=== PATIENT | female | born 1995 | race Caucasian/White ===

== ENCOUNTER 2022-10-28 02:40 | Inpatient (IN) | payer BC ==
[2022-10-30 20:20] VITALS: BMI 29.9
[2022-10-30] MEDS ORDERED: HYDROcodone/Acetaminophen 5/325 mg Tablet PO PRN ×2 (20:22)
[2022-10-30] MEDS ORDERED: hydrALAZINE 20 MG/ML VIAL SLOW IVP PRN (20:22)
[2022-10-30] MEDS ORDERED: Lidocaine 1% (PF) 30 ML VIAL SC PRN (20:22)
[2022-10-30] MEDS ORDERED: fentaNYL 50 mcg/mL 1 mL Vial SLOW IVP PRN (20:22)
[2022-10-30] MEDS ORDERED: Ibuprofen 800 MG TAB PO PRN (20:22)
[2022-10-30] MEDS ORDERED: Promethazine HCl 25 MG/ML VIAL IM PRN (20:22)
[2022-10-30] MEDS ORDERED: NS w/ Oxytocin 30 units 500 ML IV SCH ×3 (20:22)
[2022-10-30] MEDS ORDERED: Ondansetron PF 4 MG/2 ML Vial IVP PRN (20:22)
[2022-10-30] MEDS ORDERED: Misoprostol 100 MCG TAB VAG SCH (20:30)
[2022-10-30] MEDS: Lactated Ringer's 1,000 ML IV SCH (20:40)
[2022-10-30 20:48] LABS: Hemoglobin 12.2 g/dL (12.0-15.5); Mean Corpuscular HGB CONC 33.9 g/dL (32.0-36.0); Mean Corpuscular Hemoglobin 30.2 pg (27.0-33.0); Mean Corpuscular Volume 89.1 fl (81.6-98.3); Mean Platelet Volume 10.2 fl (7.4-10.4); Platelet Count 256 10x3/uL (150-450); RBC Distribution Width 13.7 % (11.5-14.5); Red Blood Cell (RBC) Count 4.04 10x6/uL (3.90-5.03); White Blood Cell (WBC) Count 13.9 10x3/uL (3.5-10.5)
[2022-10-30 21:20] LABS: HBSAg Index 0.21 S/CO (0-0.99); Hep B Surf Ag - L&D Non-Reactive S/CO (NonReactive); Syphilis Antibody Nonreactive (Nonreactive); Syphilis Antibody Index 0.06 S/CO (<1.00 Non-Reactive)
[2022-10-31] MEDS ORDERED: fentaNYL/Ropivacaine Epidural 100 ML ONE (01:32)
[2022-10-31] MEDS: Misoprostol 100 MCG TAB VAG SCH ×3 (01:41→05:38)
[2022-10-31] MEDS ORDERED: Promethazine HCl 25 MG/ML VIAL IM PRN (02:11)
[2022-10-31] MEDS ORDERED: Naloxone HCl 0.4 mg/ml Vial IVP PRN ×2 (02:11)
[2022-10-31] MEDS ORDERED: diphenhydrAMINE 50 MG/ML VIAL IVP PRN (02:11)
[2022-10-31] MEDS ORDERED: Ondansetron PF 4 MG/2 ML Vial IVP PRN ×2 (02:11→12:03)
[2022-10-31] MEDS ORDERED: Moisturizing Cream (Eucerin) 113 GM JAR TOP PRN (02:11)
[2022-10-31] MEDS ORDERED: Acetaminophen 325 MG TAB PO PRN (02:11)
[2022-10-31] MEDS ORDERED: Lactated Ringer's 500 ML IV PRN (02:11)
[2022-10-31] MEDS ORDERED: ePHEDrine Sulfate 50 MG/10 ML VIAL SLOW IVP PRN (02:11)
[2022-10-31] MEDS ORDERED: fentaNYL 2 mcg/Ropivacaine 0.2% Epidural 100 ML CADD EPIDURAL SCH (02:15)
[2022-10-31] MEDS ORDERED: Communication Order-Pharmacy FS SCH (02:15)
[2022-10-31] MEDS: Lactated Ringer's 1,000 ML IV SCH (05:37)
[2022-10-31] MEDS ORDERED: Methylergonovine 0.2 MG/ML VIAL ONE (07:31)
[2022-10-31] MEDS: Misoprostol 200 MCG TAB ONE (07:50)
[2022-10-31] MEDS ORDERED: Lanolin Ointment 7 GM TUBE TOP PRN (12:03)
[2022-10-31] MEDS ORDERED: NS w/ Oxytocin 30 units 500 ML IV SCH (12:03)
[2022-10-31] MEDS ORDERED: HYDROcodone/Acetaminophen 5/325 mg Tablet PO PRN ×2 (12:03)
[2022-10-31] MEDS ORDERED: Milk Of Magnesia 30 ML UDCUP PO PRN (12:03)
[2022-10-31] MEDS ORDERED: hydrALAZINE 20 MG/ML VIAL SLOW IVP PRN (12:03)
[2022-10-31] MEDS ORDERED: Bisacodyl 10 MG SUPP PR PRN (12:03)
[2022-10-31] MEDS ORDERED: Boostrix 0.5 ML (Tdap) VIAL (>/=7 yrs of age) IM ONE (12:03)
[2022-10-31] MEDS ORDERED: diphenhydrAMINE 25 MG CAP PO PRN (12:03)
[2022-10-31] MEDS ORDERED: Preparation H Ointment 28 GM TUBE PR PRN (12:03)
[2022-10-31] MEDS ORDERED: Ferrous Sulfate 325 MG TAB PO SCH (12:15)
[2022-10-31] MEDS ORDERED: Prenatal Vitamin 1 TAB PO SCH (12:15)
[2022-10-31] MEDS ORDERED: Docusate 100 MG CAP PO SCH (12:15)
[2022-10-31] MEDS: Ibuprofen 800 MG TAB PO SCH ×2 (15:10→22:46)
[2022-10-31] MEDS: Ferrous Sulfate 325 MG TAB PO SCH (18:03)
[2022-10-31] MEDS: Docusate 100 MG CAP PO SCH (19:44)
[2022-10-31] MEDS ORDERED: Witch Hazel-Glycerin 1 EACH JAR TOP PRN (21:29)
[2022-11-01] MEDS: Ibuprofen 800 MG TAB PO SCH ×2 (06:17→14:04)
[2022-11-01 07:28] VITALS: BP 111/62; TEMP 97.8
[2022-11-01] MEDS: Ferrous Sulfate 325 MG TAB PO SCH (08:14)
[2022-11-01] MEDS: Docusate 100 MG CAP PO SCH (08:15)
[2022-11-01] MEDS ORDERED: Prenatal Vitamin 1 TAB PO SCH (09:00)
== END 2022-11-01 14:35 | disposition home or self-care (01) | DRG 807 ==
LOC: CSHLD 10-30 20:03 → CSHPP 10-31 09:55
PROVIDERS: ADMIT Obstetrics & Gynecology; ATTEND Obstetrics & Gynecology
PROC: 10E0XZZ Delivery of Products of Conception, External Approach (ICD-10-PCS; principal; 2022-10-31)
PROC: 0KQM0ZZ Repair Perineum Muscle, Open Approach (ICD-10-PCS; 2022-10-31)
PROC: 3E0P7VZ Introduction of Hormone into Female Reproductive, Via Natural or Artificial Opening (ICD-10-PCS; 2022-10-31)
PROC: 3E033VJ Introduction of Other Hormone into Peripheral Vein, Percutaneous Approach (ICD-10-PCS; 2022-10-31)
PROC: 3E0334Z Introduction of Serum, Toxoid and Vaccine into Peripheral Vein, Percutaneous Approach (ICD-10-PCS; 2022-10-31)
DX: O48.0 Post-term pregnancy (principal); Z37.0 Single live birth; O62.2 Other uterine inertia; O70.1 Second degree perineal laceration during delivery; Z3A.40 40 weeks gestation of pregnancy; O26.893 Other specified pregnancy related conditions, third trimester; Z67.41 Type O blood, Rh negative
CPT/HCPCS: 36415; 51702; 85027; 86780; 86850; 86870; 86900; 86901; 87340; J2210; J2405; J2590; J3010; J7120

== ENCOUNTER 2025-01-31 08:29 | Inpatient (IN) | payer BC ==
[2025-01-31] MEDS ORDERED: Ondansetron PF 4 MG/2 ML Vial IVP PRN ×3 (09:25→16:21)
[2025-01-31] MEDS ORDERED: Ibuprofen 800 MG TAB PO PRN (09:25)
[2025-01-31] MEDS ORDERED: hydrALAZINE 20 MG/ML VIAL SLOW IVP PRN ×2 (09:25→16:21)
[2025-01-31] MEDS ORDERED: Lidocaine 1% (PF) 30 ML VIAL SC PRN (09:25)
[2025-01-31] MEDS ORDERED: HYDROcodone/Acetaminophen 5/325 mg Tablet PO PRN ×3 (09:25→16:21)
[2025-01-31] MEDS ORDERED: Oxytocin 30 units/NS 500 ML 500 ML IV SCH ×2 (09:30)
[2025-01-31 09:32] VITALS: BMI 29.9
[2025-01-31 09:46] LABS: Hematocrit 34.6 % (34.9-44.5); Hemoglobin 11.6 g/dL (12.0-15.5); Mean Corpuscular Hemoglobin 29.1 pg (27.0-33.0); Mean Corpuscular Volume 86.7 fL (81.6-98.3); Platelet Count 189 10x3/uL (150-450); Red Blood Cell (RBC) Count 3.99 10x6/uL (3.90-5.03); White Blood Cell (WBC) Count 9.62 10x3/uL (3.5-10.5)
[2025-01-31] MEDS: fentaNYL/Ropivacaine Epidural 100 ML ONE (10:00)
[2025-01-31 10:19] LABS: Hep B Surf Ag - L&D Non-Reactive S/CO (NonReactive)
[2025-01-31 10:20] LABS: Syphilis Antibody Index 0.07 S/CO (<1.00 Non-Reactive)
[2025-01-31] MEDS ORDERED: diphenhydrAMINE 50 MG/ML VIAL IVP PRN (10:23)
[2025-01-31] MEDS ORDERED: Acetaminophen 325 MG TAB PO PRN (10:23)
[2025-01-31] MEDS ORDERED: fentaNYL 2 mcg/Ropivacaine 0.2% Epidural 100 ML CADD EPIDURAL SCH (10:30)
[2025-01-31] MEDS ORDERED: Communication Order-Pharmacy FS SCH (10:30)
[2025-01-31] MEDS ORDERED: Milk Of Magnesia 30 ML UDCUP PO PRN (16:21)
[2025-01-31] MEDS ORDERED: Lanolin Ointment 7 GM TUBE TOP PRN (16:21)
[2025-01-31] MEDS ORDERED: diphenhydrAMINE 25 MG CAP PO PRN (16:21)
[2025-01-31] MEDS ORDERED: Preparation H Ointment 28 GM TUBE PR PRN (16:21)
[2025-01-31] MEDS ORDERED: Bisacodyl 10 MG SUPP PR PRN (16:21)
[2025-01-31] MEDS: Boostrix 0.5 ML (Tdap) VIAL (>/=7 yrs of age) IM ONE (17:08)
[2025-01-31] MEDS: Ferrous Sulfate 325 MG TAB PO SCH (17:08)
[2025-01-31] MEDS: Ibuprofen 800 MG TAB PO SCH (17:26)
[2025-01-31] MEDS ORDERED: Bupivacaine/Epinephrine 0.25% 30 ML VIAL ONE (18:55)
[2025-01-31] MEDS: Benzocaine-Menthol 82.5 ML CAN TOP PRN (20:47)
[2025-01-31] MEDS: HYDROcodone/Acetaminophen 5/325 mg Tablet PO PRN (22:07)
[2025-02-01] MEDS ORDERED: Measles/Mumps/Rubella 10 MCG/0.5 ML VIAL SC ONE (04:24)
[2025-02-01 08:45] VITALS: TEMP 98.2
[2025-02-01 12:23] VITALS: BP 108/56
== END 2025-02-01 14:35 | disposition home or self-care (01) | DRG 807 ==
LOC: CSHLD/OP 08:29 → CSHLD 09:10 → CSHPP 16:20
PROVIDERS: ADMIT Obstetrics & Gynecology; ATTEND Obstetrics & Gynecology
PROC: 10E0XZZ Delivery of Products of Conception, External Approach (ICD-10-PCS; principal; 2025-01-31)
PROC: 10907ZC Drainage of Amniotic Fluid, Therapeutic from Products of Conception, Via Natural or Artificial Opening (ICD-10-PCS; 2025-01-31)
PROC: 0HQ9XZZ Repair Perineum Skin, External Approach (ICD-10-PCS; 2025-01-31)
DX: O48.0 Post-term pregnancy (principal); Z37.0 Single live birth; Z3A.40 40 weeks gestation of pregnancy; O70.0 First degree perineal laceration during delivery; Z79.899 Other long term (current) drug therapy
CPT/HCPCS: 51702; 85027; 86780; 86850; 86900; 86901; 87340; 99285; J7120